=== PATIENT | male | born 1950 | race Caucasian/White ===

== ENCOUNTER 2016-05-01 05:56 | Inpatient (IN) | payer OTHER ==
[2016-04-30 09:52] LABS: % IMMATURE GRANULYOCYTES 0.3 % (0.0-1.1); ABSOLUTE IMMATURE GRANULOCYTES 0.02 10^3/uL (0.00-0.10); ADD DIFF? NO; ADD MORPH? NO; ADD SCAN? NO; ATYPICAL LYMPHOCYTE FLAG 0 (0-99); FRAGMENT RBC FLAG 0 (0-99); HEMOGLOBIN 16.6 g/dL (13.7-17.5); LEFT SHIFT FLG 0 (0-99); LIPEMIA HEMOLYSIS FLAG 90 (0-99); MEAN CELL HEMOGLOBIN 31.6 pg (27.9-34.1); MEAN CELL HEMOGLOBIN CONCENTR. 34.6 g/dL (32.4-36.7); MEAN CELL VOLUME 91.3 fL (81.5-99.8); MEAN PLATELET VOLUME 9.6 fL (8.7-11.7); PLATELET CLUMPS FLAG 0 (0-99); PLATELET COUNT 249 10^3/uL (150-400); RED BLOOD CELL COUNT 5.26 10^6/uL (4.40-6.38); RED CELL DISTRIBUTION WIDTH 12.7 % (11.5-15.2)
[2016-05-01] MEDS ORDERED: LIDOCAINE 1% 5 ML SDV ONE (06:29)
[2016-05-01] MEDS ORDERED: THROMBIN (RECOMBINANT) 5,000 UNIT VIAL TP ONE (06:48)
[2016-05-01] MEDS ORDERED: BUPIVACAINE/EPI 0.5% 30 ML SDV ONE (06:48)
[2016-05-01] MEDS ORDERED: CALCIUM CHLORIDE 1 GM/10 ML INJ ONE (06:48)
[2016-05-01] MEDS ORDERED: POLYMYXIN B SULFATE 500,000 UNIT/10 ML SYR IRR ONE (06:49)
[2016-05-01] MEDS ORDERED: BACITRACIN 50,000 UNITS/10 ML SYR IRR ONE (06:49)
[2016-05-01] MEDS ORDERED: MIDAZOLAM 2 MG/2 ML VIAL ONE (07:10)
[2016-05-01] MEDS ORDERED: fentaNYL 100 MCG/2 ML INJ ONE (07:12)
[2016-05-01] MEDS ORDERED: BUPIVACAINE/EPI 0.25% 30 ML SDV ONE (07:12)
[2016-05-01] MEDS ORDERED: PROPOFOL/EMULSION 500 MG/50 ML BOTTLE IV ONE ×2 (07:12→08:30)
[2016-05-01] MEDS ORDERED: ceFAZolin 1 GM VIAL ONE ×2 (07:40)
[2016-05-01] MEDS ORDERED: ONDANSETRON 4 MG/2 ML VIAL ONE (07:48)
[2016-05-01] MEDS ORDERED: DEXAMETHASONE 4 MG/ML VIAL ONE (07:48)
[2016-05-01] MEDS ORDERED: CHLORHEXIDINE GLUC HIBICLENS 118 ML BTL TP ONE (08:00)
[2016-05-01] MEDS ORDERED: ROPI/epiNEPH/KETOROLAC/morphINE JOINT COCKTAIL IU ONE (08:00)
[2016-05-01] MEDS ORDERED: diphenhydrAMINE 25 MG CAP PO PRN (09:41)
[2016-05-01] MEDS ORDERED: POLYETHYLENE GLYCOL 3350 17 GM PKT PO PRN (09:41)
[2016-05-01] MEDS ORDERED: ONDANSETRON DISINTEGRATING 4 MG TAB PO PRN (09:41)
[2016-05-01] MEDS ORDERED: PROMETHAZINE HCL 25 MG SUPPR PR PRN (09:41)
[2016-05-01] MEDS ORDERED: LACTULOSE 20 GM/30 ML UDCUP PO PRN (09:41)
[2016-05-01] MEDS ORDERED: PHARMACY PAIN CONSULT 1 EA MISC PRN (09:41)
[2016-05-01] MEDS ORDERED: METOCLOPRAMIDE 10 MG/2 ML VIAL IVP PRN (09:41)
[2016-05-01] MEDS ORDERED: TEMAZEPAM 15 MG CAP PO PRN (09:41)
[2016-05-01] MEDS ORDERED: PROMETHAZINE HCL 25 MG/ML INJ IVP PRN (09:41)
[2016-05-01] MEDS ORDERED: oxyCODONE IR 5 MG TAB PO PRN (09:41)
[2016-05-01] MEDS ORDERED: ONDANSETRON 4 MG/2 ML VIAL IVP PRN (09:41)
[2016-05-01] MEDS ORDERED: MAGNESIUM HYDROXIDE 30 ML UDCUP PO PRN (09:41)
[2016-05-01] MEDS ORDERED: BISACODYL 10 MG SUPP PR PRN (09:41)
[2016-05-01] MEDS ORDERED: DIPHENOXYLATE/ATROPINE LOMOTIL 1 TAB PO PRN (09:41)
[2016-05-01] MEDS ORDERED: CYCLOBENZAPRINE 10 MG TAB PO PRN (09:41)
--- NOTE | 2016-05-01 09:41 | POSTOPPROG ---
Post Op Note Date of Operation: 05/01/16 Surgeon: Arely Mohr Ticket Taker: trajustin Anesthesiologist: ida Anesthesia: Epidural Pre-op Diagnosis: r knee oa Procedure: r tkr Inf/Abcess present in the surg proc area at time of surgery?: No Depth: Deep Incisional (Fascial) EBL: 50-100
--- NOTE | 2016-05-01 10:28 | DX ---
Right Knee, Two Views 10:06 a.m. Indication: Recent total knee arthroplasty. Technique: Crosstable lateral and AP views. Comparison: None Findings: A three-piece total knee arthroplasty is anatomically aligned. No perihardware fracture. Ex pected subcutaneous and intra-articular gas. Impression: Good positioning of total knee arthroplasty.
--- NOTE | 2016-05-01 11:11 | GOP ---
[f rep st] OPERATIVE REPORT DATE OF OPERATION: 05/01/2016 SURGEON: Arely Mohr MD SILK WINDING MACHINE OPERATOR: Glen Barrera, ALESIAA, LSA, whose presence was medically necessary. ANESTHESIA: Spinal nerve block, plus adductor nerve block. PREOPERATIVE DIAGNOSIS: Right knee osteoarthritis. POSTOPERATIVE DIAGNOSIS: Right knee osteoarthritis. PROCEDURE PERFORMED: Right total knee arthroplasty. FINDINGS: INDICATIONS: A 65-year-old male with a several-year history of right knee pain worsening with use an d with time to the point it is affecting activities of daily living, along with recreational activiti es. X-ray exam reveals [id number] osteoarthritic changes to the medial compartment. He wishes to have surgery in order to resolve the problem. DESCRIPTION OF PROCEDURE: The patient was brought to the operating room, after the right side had be en identified as the correct side by the patient, nurse, and physician. Once in the operating room, he was given an adductor canal block. He was also given a spinal nerve block with sedation. Once co mpleted, he was placed in a supine position. A tourniquet was placed around the upper portion of the right thigh, with the right lower extremity sterilely prepped and draped in the usual fashion using GSI solution. Once prepped and draped, the limb was exsanguinated, tourniquet inflated to 250 mmHg. Incision was made on the anterior portion of the knee 1 handbreadth above and below the patella, wit h sharp dissection carried down through the skin, subcutaneous layers, with bleeding controlled using electrocautery. Incision was made through the extensor mechanism using a medial parapatellar approa ch, and the patella was brought to the side, but not everted. He was noted to have [id number] oste oarthritic changes to the medial compartment. A drill hole was made just anterior to the intercondyl ar notch with an intramedullary guide placed within the femoral canal. The guide was set to remove 9 mm of bone from the distal end of the femur. Once pinned into place, an oscillating saw was used to remove the distal portion of the femur. Osteotome was used to remove cartilage from the lateral por tion of the posterior femoral condyle with a sizing guide placed on the cut surface of the femur. He was measured to be a size 7, seemed to fit best, based on the anterior cortex. Therefore, drill hol es were made, and a size 7 4-in-1 cutting block was put into place. Anterior, posterior, and chamfer cuts were made. A size 7 trial was put into place, noted to fit securely. The knee was able to ach ieve full extension, suggesting adequate removal of bone. Lug holes were drilled for the femoral com ponent. The ACL along with the medial and lateral meniscus were removed. The knee was brought to ma ximal flexion. The tibia subluxed anteriorly. An external tibial guide was put into place. It was set to remove 2 mm of bone from the medial portion of the tibia. Once pinned into place, a drop raegan was placed in order to ensure proper angle and posterior slope. Locking pin was then placed in the c utting guide. Oscillating saw was used to remove the proximal portion of the tibia. The femoral tri al, tibial trial, and a trial liner was placed into the knee. The knee was able to achieve full exte nsion, suggesting adequate resection of bone. All trials were then removed from the bone. Several t rials were placed on the cut surface of the tibia and noted a size E tibial tray seemed to fit best. It was, therefore, placed in a slight external rotation and was pinned into place. The medullary gu jenna was placed into the tray with the drill passed into the medullary canal and a keel punch then pas sed through the plate. Once completed, the trial plate was removed. Knee brought to full extension. The patella was then everted. The patella was measured to be 25 mm in thickness. Oscillating saw was used to remove the posterior portion of patella, leaving 17 mm of bone. Multiple trials were mike allen on the cut surface and noted a 29 mm patellar button seemed to fit best. Therefore, lug holes we re drilled for a 25 mm component. All cut surfaces of the bone were then thoroughly irrigated with a n antibiotic solution using pulsatile lavage. Once cement had become more firm and doughy, it was pl aced on the proximal portion of the tibia with a size E natural tibia from [employer] put into place, wit h excess cement removed using a [place] elevator. Cement was then placed on the posterior skids of the femoral component, with cement placed on the distal anterior portions of the femur with a size 7 Per ayana cruciate-retaining femoral component from [place] put into place with excess cement removed using a [place] elevator. A trial liner was placed in the tibial tray. The knee was brought to full extens ion in order to pressurize cement. Cement was then placed on the posterior portion of the patella wi th a 29 mm patellar button, clamped into place, and excess cement removed using a [place] elevator. On ce cement had hardened, any excess cement was removed using combination of rongeur and osteotome. Mu ltiple trials were placed in the tibial tray, and noted that a 10 mm liner seemed to fit best. There fore, a 10 mm polyethylene liner was placed in the tibial tray. Once locked into place, the tourniqu et was deflated at 71 minute. Bleeding was controlled using electrocautery. Joint cocktail was then injected around the capsule and along the periosteum. The wound was then closed in layers to includ e 0 Vicryl suture in a zxcprw-lq-rioni type stitch for the extensor mechanism, with plasma gel placed intra-articularly. 0 Vicryl and 2-0 Vicryl suture were used to close the subcutaneous layers, with plasma gel placed external to the extensor mechanism and a 3-0 Prolene suture in a running subcuticul ar stitch used to close the skin. The wound was dressed with Steri-Strips, Xeroform, 4 x 4, and Kerl ix. The leg was completely undraped in the operating room, tourniquet removed from the thigh, and an Alexander wrap placed around the knee. He was then woken up, transferred onto a stretcher, and sent to re covery room in good condition. TOURNIQUET TIME: 71 minutes. /[id number]/MODL
[2016-05-01] MEDS ORDERED: ZOLPIDEM TARTRATE 5 MG TAB PO PRN (11:29)
[2016-05-01] MEDS: KETOROLAC 30 MG/1 ML SDV IVP SCH ×3 (11:39→23:11)
[2016-05-01] MEDS: LR 1,000 ML IV SCH ×2 (11:41→20:02)
[2016-05-01] MEDS: ACETAMINOPHEN 325 MG TAB PO SCH ×3 (11:42→23:11)
[2016-05-01] MEDS: traMADol 50 MG TAB PO SCH ×3 (11:42→23:11)
[2016-05-01] MEDS ORDERED: ceFAZolin 2 GM/DEXTROSE 100 ML IV SCH (14:00)
[2016-05-01] MEDS: ceFAZolin 2 GM in D5W 100 ML IV SCH ×2 (14:27→23:11)
[2016-05-01] MEDS: SENNOSIDES/DOCUSATE SODIUM TAB PO SCH (20:02)
[2016-05-01] MEDS: METOPROLOL TARTRATE 50 MG TAB PO SCH (20:02)
[2016-05-01] MEDS: FAMOTIDINE 20 MG TAB PO SCH (20:02)
[2016-05-01] MEDS ORDERED: ATORVASTATIN CALCIUM 40 MG TAB PO SCH (21:00)
[2016-05-02 05:19] LABS: HEMOGLOBIN 12.6 g/dL (13.7-17.5)
[2016-05-02] MEDS: ACETAMINOPHEN 325 MG TAB PO SCH ×2 (05:58→11:47)
[2016-05-02] MEDS: KETOROLAC 30 MG/1 ML SDV IVP SCH ×2 (05:58→11:48)
[2016-05-02] MEDS: traMADol 50 MG TAB PO SCH ×2 (05:58→11:48)
[2016-05-02 07:26] VITALS: O2SAT 94
[2016-05-02] MEDS: METOPROLOL TARTRATE 50 MG TAB PO SCH (08:43)
[2016-05-02] MEDS: SENNOSIDES/DOCUSATE SODIUM TAB PO SCH (08:45)
[2016-05-02] MEDS: FAMOTIDINE 20 MG TAB PO SCH (08:45)
[2016-05-02] MEDS ORDERED: RIVAROXABAN 10 MG TAB PO SCH (09:00)
[2016-05-02 11:04] VITALS: BP 135/80; PULSE 66; RESP 18; TEMP 97.8
[2016-05-02] MEDS ORDERED: PNEUMOC 13-VAL CONJ-DIP CRM/PF 0.5 ML SYR IM ONE (11:53)
--- NOTE | 2016-05-02 12:36 | PDIAF ---
- Diagnosis Code Status: Full Code - Medication Management Discharge Medications: Medications to Continue on Transfer Zolpidem Tartrate 10 mg PO HS PRN 12/05/12 [Last Taken 12/04/12] Aspirin [Aspirin 325 mg (*)] 325 mg PO HS 04/27/16 [Last Taken Unknown] Atorvastatin Calcium [Lipitor 40 mg (*)] 40 mg PO HS 04/27/16 [Last Taken Unknown] Metoprolol Tartrate [Lopressor 50 mg (*)] 25 mg PO BID 04/27/16 [Last Taken Unknown] Rivaroxaban [Xarelto 10mg (*)] 10 mg PO DAILY #0 tab 05/02/16 [Last Taken Unknown] oxyCODONE IR [Oxycodone Ir (*)] 5 - 10 mg PO Q3HRS PRN #0 tab 05/02/16 [Last Taken Unknown] traMADol [Ultram 50 mg (*)] 50 mg PO Q6HRS #0 tab 05/02/16 [Last Taken Unknown] Discharge Medications: Refer to the Discharge Home Medication list for PRN reason. PICC Care - Routine: N/A - Orders Services needed: Physical Therapy Diet Recommendation: no restrictions on diet Diet Texture: Regular Texture Diet Healy: Not applicable Wound Care Instructions: change dressing as needed, keep dry Sutures/Allan Site: R knee, remove in office Activity/Weight Bearing Restrictions: wbat - Follow Up Care Current Providers and Referrals: Duran Doe MD [Primary Care Provider] -
== END 2016-05-02 14:09 | disposition home or self-care (01) | DRG 470 ==
LOC: F3N 05:56
PROVIDERS: ADMIT Orthopaedic Surgery; ATTEND Orthopaedic Surgery
PROC: 0SRC0J9 Replacement of Right Knee Joint with Synthetic Substitute, Cemented, Open Approach (ICD-10-PCS; principal; 2016-05-01 07:15)
DX: M17.11 Unilateral primary osteoarthritis, right knee (principal); I25.10 Atherosclerotic heart disease of native coronary artery without angina pectoris; E78.00 Pure hypercholesterolemia, unspecified; Z95.5 Presence of coronary angioplasty implant and graft; Z23 Encounter for immunization
CPT/HCPCS: 97110-GP; 97116-GP; 97161-GP; 97165-GO; 97530-GP; C1713; G0009; G8978-GP-CI; G8979-GP-CI; G8980-GP-CI; G8987-GO-CI; G8988-GO-CI; G8989-GO-CI; J0171; J0690; J1100; J1885; J2250; J2405; J2704; J2795; J3010; L1832

== ENCOUNTER 2016-07-29 23:54 | Emergency (ER) | payer OTHER ==
--- NOTE | 2016-07-30 00:11 | CPEKG ---
Heart Rate: 66 RR Interval: 909 P-R Interval: 152 QRSD Interval: 84 QT Interval: 412 QTC Interval: 432 P [place]: 30 QRS [place]: -27 T Wave [place]: 15 EKG Severity - ABNORMAL ECG - EKG Impression: SINUS RHYTHM EKG Impression: INFERIOR INFARCT, AGE INDETERMINATE Electronically Signed By: Phillip Gordillo 30-Jul-2016 07:14:39
--- NOTE | 2016-07-30 00:35 | EDPHY ---
H & P Stated Complaint: dizziness Time Seen by Provider: 07/30/16 00:20 HPI/ROS: Chief Complaint: Dizziness HPI: 65-year-old male had the onset of some lightheadedness and dizziness at 11 :30 a.m. this evening after he had walked up stairs got a bed. Did not have any chest pain or shortness of breath. No nausea or vomiting. No headache. Has a history of coronary artery disease and had a single stent placed in 2012. He is worried that the dizziness might represent something going on with his heart. No fevers or chills or recent illness. No nausea or vomiting. He did have a knee surgery in April and has had chronic right leg swelling since then. Is not tender to the touch. Is not worsening. He has a little bit anxious about a plan manipulation of that knee next week. Currently has no dizziness or other complaints at this time. ROS: 10 point Review of Systems is negative except as noted in the HPI. PMH: Coronary artery disease, hypertension, right knee replacement Social History: No smoking, no alcohol, no recreational drug use Family History: non-contributory Physical Exam: Gen: Awake, Alert, No Distress HEENT: Nose: no rhinorrhea Eyes: PERRLA, EOMI Mouth: Moist mucosa Neck: Supple, no JVD Chest: nontender, lungs clear to auscultation Heart: S1, S2 normal, no murmur Abd: Soft, non-tender, no guarding Back: no CVA tenderness, no midline tenderness Ext: no edema, non-tender Skin: no rash Neuro: CN II-XII intact, Sensation grossly intact, Strength 5/5 in bilateral upper and lower extremities - Personal History Current Tetanus/Diphtheria Vaccine: Yes Tetanus Vaccine Date: 2007 - Medical/Surgical History Hx Asthma: No Hx Chronic Respiratory Disease: No Hx Diabetes: No Hx Cardiac Disease: Yes Hx Renal Disease: No Hx Cirrhosis: No Hx Alcoholism: No Hx HIV/AIDS: No Hx Splenectomy or Spleen Trauma: No Other PMH: HTN, CAD with stent, anxiety, lt knee arthroscopy - Social History Smoking Status: Never smoked Constitutional: Initial Vital Signs Heart Rate 66 07/30/16 00:05 Respiratory Rate 18 07/30/16 00:05 Blood Pressure 128/74 H 07/30/16 00:05 O2 Sat (%) 95 07/30/16 00:05 O2 Delivery Mode Room Air Allergies/Adverse Reactions: No Known Allergies Allergy (Verified 04/27/16 10:23) Home Medications: Medication Instructions Recorded Zolpidem Tartrate 10 mg PO HS PRN 12/05/12 Aspirin [Aspirin 325 mg (*)] 325 mg PO HS 04/27/16 Atorvastatin Calcium [Lipitor 40 40 mg PO HS 04/27/16 mg (*)] Metoprolol Tartrate [Lopressor 50 25 mg PO BID 04/27/16 mg (*)] oxyCODONE IR [Oxycodone Ir (*)] 5 - 10 mg PO Q3HRS PRN #0 tab 05/02/16 traMADol [Ultram 50 mg (*)] 50 mg PO Q6HRS #0 tab 05/02/16 Medical Decision Making - Diagnostics EKG Interpretation: ECG time 12:06 a.m. sinus rhythm with a rate of 66, normal axis, normal intervals, no acute ST or T-wave changes, here Q-waves in leads to 3 in AVF consistent with an old infarct. This ECG is unchanged from 12/06/2012 ED Course/Re-evaluation: Patient is feeling improved with no treatments. Troponin is negative. Electrolytes are entirely normal. Patient has not had any chest pain or shortness of breath. No symptoms suggestive of acute coronary syndrome. With normal ECG interval drawn I am confident that this does not represent ACS. Will discharge with follow with his primary care physician and chemical waste management technician in next 2-3 days, return for worsening. - Data Points Laboratory Results: Laboratory Results 07/30/16 00:17 07/30/16 00:17 07/30/16 07/30/16 00: 00:17 WBC 8.04 10^3/uL 10^3/uL (3.80-9.50) RBC 4.79 10^6/uL 10^6/uL (4.40-6.38) Hgb 14.3 g/dL g/dL (13.7-17.5) Hct 43.0 % % (40.0-51.0) MCV 89.8 fL fL (81.5-99.8) MCH 29.9 pg pg (27.9-34.1) MCHC 33.3 g/dL g/dL (32.4-36.7) RDW 13.1 % % (11.5-15.2) Plt Count 310 10^3/uL 10^3/uL (150-400) MPV 10.0 fL fL (8.7-11.7) Neut % (Auto) 71.1 % % (39.3-74.2) Lymph % (Auto) 17.7 % % (15.0-45.0) [place] % (Auto) 8.6 % % (4.5-13.0) Eos % (Auto) 1.6 % % (0.6-7.6) Baso % (Auto) 0.6 % % (0.3-1.7) Nucleat RBC Rel Count 0.0 % % (0.0-0.2) Absolute Neuts (auto) 5.72 10^3/uL 10^3/uL (1.70-6.50) Absolute Lymphs (auto) 1.42 10^3/uL 10^3/uL (1.00-3.00) Absolute Monos (auto) 0.69 10^3/uL 10^3/uL (0.30-0.80) Absolute Eos (auto) 0.13 10^3/uL 10^3/uL (0.03-0.40) Absolute Basos (auto) 0.05 10^3/uL 10^3/uL (0.02-0.10) Absolute Nucleated RBC 0.00 10^3/uL 10^3/uL (0-0.01) Immature Gran % 0.4 % % (0.0-1.1) Immature Gran # 0.03 10^3/uL 10^3/uL (0.00-0.10) Sodium 137 mEq/L mEq/L (134-144) Potassium 4.1 mEq/L mEq/L (3.5-5.2) Chloride 105 mEq/L mEq/L (97-110) Carbon Dioxide 21 mEq/l L mEq/l (22-31) Anion Gap 11 mEq/L mEq/L (8-16) BUN 24 mg/dL H mg/dL (7-23) Creatinine 0.9 mg/dL mg/dL (0.7-1.3) Estimated GFR > 60 Glucose 177 mg/dL H mg/dL (70-100) Calcium 9.2 mg/dL mg/dL (8.5-10.4) Troponin I < 0.012 ng/mL ng/mL (0-0.034) Departure - Departure Disposition: Home, Routine, Self-Care Clinical Impression: Dizziness, Hypertension Condition: Good Instructions: Dizziness (ED), Lightheadedness (ED), Hypertension (ED) Additional Instructions: Follow up with primary care physician in 2-3 days for re-evaluation. Return emergency department for increasing dizziness, headache, nausea, vomiting , chest pain, shortness of breath, or any other concerns. Referrals: Duran Doe MD [Primary Care Provider] - As per Instructions
[2016-07-30 00:49] LABS: ANION GAP 11 mEq/L (8-16); CALCIUM 9.2 mg/dL (8.5-10.4); CARBON DIOXIDE 21 mEq/l (22-31); CHLORIDE 105 mEq/L (97-110); CREATININE 0.9 mg/dL (0.7-1.3); GLOMERULAR FILTRATION RATE > 60; GLUCOSE 177 mg/dL (70-100); POTASSIUM 4.1 mEq/L (3.5-5.2); SODIUM 137 mEq/L (134-144)
[2016-07-30 00:51] LABS: % IMMATURE GRANULYOCYTES 0.4 % (0.0-1.1); ABSOLUTE IMMATURE GRANULOCYTES 0.03 10^3/uL (0.00-0.10); ADD DIFF? NO; ADD MORPH? NO; ADD SCAN? NO; ATYPICAL LYMPHOCYTE FLAG 0 (0-99); FRAGMENT RBC FLAG 0 (0-99); HEMOGLOBIN 14.3 g/dL (13.7-17.5); LEFT SHIFT FLG 0 (0-99); LIPEMIA HEMOLYSIS FLAG 80 (0-99); MEAN CELL HEMOGLOBIN 29.9 pg (27.9-34.1); MEAN CELL HEMOGLOBIN CONCENTR. 33.3 g/dL (32.4-36.7); MEAN CELL VOLUME 89.8 fL (81.5-99.8); PLATELET CLUMPS FLAG 0 (0-99); PLATELET COUNT 310 10^3/uL (150-400); RED BLOOD CELL COUNT 4.79 10^6/uL (4.40-6.38); RED CELL DISTRIBUTION WIDTH 13.1 % (11.5-15.2)
[2016-07-30 01:01] LABS: TROPONIN I < 0.012 ng/mL (0-0.034)
[2016-07-30 02:56] VITALS: BP 159/96; PULSE 59; RESP 18; O2SAT 95
== END 2016-07-30 02:54 | disposition home or self-care (01) ==
DX: R42 Dizziness and giddiness (principal); I10 Essential (primary) hypertension; I25.10 Atherosclerotic heart disease of native coronary artery without angina pectoris; Z79.82 Long term (current) use of aspirin

== ENCOUNTER 2017-03-26 07:15 | Observation (INO) | payer OTHER ==
--- NOTE | 2017-04-17 17:13 | GHP ---
[f rep st] PREOP HISTORY AND PHYSICAL DATE OF ADMISSION: 04/23/2017 DIAGNOSIS: Left knee osteoarthritis. PLANNED SURGERY: Left total knee arthroplasty. HISTORY OF PRESENT ILLNESS: The patient is a 66-year-old male with a long history of left knee osteo arthritis. After failing a course of conservative treatment including physical therapy, cortisone in jections, oral anti-inflammatories, and activity modification, the patient has continued to have pain to the point where he requires surgery. After reviewing the risks and benefits of the procedure in detail, the patient now opts for surgical intervention. PAST MEDICAL HISTORY: Significant for coronary artery disease and hypertension. PAST SURGICAL HISTORY: Right total knee arthroplasty, manipulation under anesthesia of the right kne e and a cardiac stent in the right coronary artery. MEDICATIONS: Atorvastatin 40 mg daily, metoprolol 50 mg daily, and Ambien 10 mg at night. SOCIAL HISTORY: No tobacco use. Occasional alcohol use. No drug use. ALLERGIES: No known drug allergies. PHYSICAL EXAMINATION: GENERAL: He is alert and oriented x3. NECK: Cervical exam shows full pain-f ree range of motion. No carotid bruits are heard. Patent airway. CARDIAC: Exam shows a regular rat e and rhythm. Normal S1, S2. No murmurs, rubs, or gallops. PULMONARY: Exam shows lungs are clear. ABDOMEN: Exam shows normoactive bowel sounds. Nontender, nondistended. EXTREMITIES: Examination of left knee shows skin to be clean, dry, and intact. Range of motion is full. Stable to varus and debra rupert stress. The ACL is intact. There is no swelling or effusion distally. Calf is soft, nontender. There is no evidence of DVT. IMAGING STUDIES: X-rays of the left knee show moderate to severe osteoarthritis diffusely. ASSESSMENT/PLAN: The patient presents with a long history of left knee osteoarthritis. After failin g a long course of conservative treatment, the patient now opts for surgical intervention. I have re viewed the risks and benefits of surgery in detail today as well as the healing timeframe and the [facility] ient accepts these. /[id number]/MODL
[2017-04-18 11:20] LABS: PLATELET COUNT 221 10^3/uL (150-400)
[2017-04-22] MEDS ORDERED: ROPIVACAINE 0.2% 80 MG, EPINEPHrine 0.2 MG, KETOROLAC TROMETHAMINE 30 MG, morphINE 10 M... IU ONE (20:38)
--- NOTE | 2017-04-22 20:38 | PDHPUP ---
History & Physical Update H&P update statement: This history and physical update is based on an assessment of the patient which was completed after admission or registration (within 24 hours), but prior to the surgery/procedure. H&P update: H&P reviewed & patient examined, no change in patient's condition since H&P completed
[2017-04-23] MEDS ORDERED: ACETAMINOPHEN 500 MG TAB PO ONE ×2 (06:00→08:11)
[2017-04-23] MEDS ORDERED: TRANEXAMIC ACID 3,000 MG in NS 50 ML IRR ONE (06:00)
[2017-04-23] MEDS ORDERED: ceFAZolin 2 GM/SWFI 2 GM/20 ML SYR IVP ONE ×2 (06:00→08:11)
[2017-04-23] MEDS ORDERED: PREGABALIN 150 MG CAP PO ONE (06:00)
[2017-04-23] MEDS ORDERED: ROPIVACAINE 0.2% 80 MG, EPINEPHrine 0.2 MG, KETOROLAC TROMETHAMINE 30 MG, morphINE 10 M... IU ONE (06:00)
[2017-04-23] MEDS ORDERED: THROMBIN (BOVINE) 5,000 UNIT VIAL TP ONE (07:23)
[2017-04-23] MEDS ORDERED: CALCIUM CHLORIDE 1 GM/10 ML INJ ONE (07:23)
[2017-04-23] MEDS ORDERED: BACITRACIN 50,000 UNITS/10 ML SYR IRR ONE (07:23)
[2017-04-23] MEDS ORDERED: POLYMYXIN B SULFATE 500,000 UNIT/10 ML SYR IRR ONE (07:24)
[2017-04-23] MEDS ORDERED: BUPIVACAINE/EPI 0.5% 30 ML SDV ONE (07:24)
[2017-04-23] MEDS ORDERED: LR 1,000 ML IV SCH ×2 (08:11→12:30)
[2017-04-23] MEDS ORDERED: LR 1,000 ML IV ONE (08:12)
[2017-04-23] MEDS ORDERED: LIDOCAINE 1% 2 ML INJ ID PRN (08:12)
[2017-04-23] MEDS ORDERED: PREGABALIN 150 MG CAP ONE (08:40)
[2017-04-23] MEDS ORDERED: MIDAZOLAM 2 MG/2 ML VIAL IVP ONE (09:52)
[2017-04-23] MEDS ORDERED: MIDAZOLAM 2 MG/2 ML VIAL ONE (09:56)
--- NOTE | 2017-04-23 09:56 | PDANEPAE ---
ANE Past Medical History - Cardiovascular History Hx Hypertension: Yes Hx Arrhythmias: No Hx Chest Pain: No Hx Coronary Artery / Peripheral Vascular Disease: Yes Hx CHF / Valvular Disease: No Hx Palpitations: No Cardiovascular History Comment: STENT 11/2012. [place] - Pulmonary History Hx COPD: No Hx Asthma/Reactive Airway Disease: No Hx Recent Upper Respiratory Infection: No Hx Oxygen in Use at Home: No Hx Sleep Apnea: No Sleep Apnea Screening Result - Last Documented: Positive - Neurologic History Hx Cerebrovascular Accident: No Hx Seizures: No Hx Dementia: No - Endocrine History Hx Diabetes: No - Renal History Hx Renal Disorders: No - Liver History Hx Hepatic Disorders: No - Neurological & Psychiatric Hx Hx Neurological and Psychiatric Disorders: Yes Neurological / Psychiatric History Comment: ANXIETY - Cancer History Hx Cancer: No - Congenital Disorder History Hx Congenital Disorders: No - GI History Hx Gastrointestinal Disorders: No - Other Health History Other Health History: INSOMNIA. OSTEOARTHRITIS - Chronic Pain History Chronic Pain: Yes (RT KNEE) - Surgical History Prior Surgeries: right TKA 2017. STENT X 1 IN 11/2012. LEFT KNEE SCOPE 15 YRS AGO ANE Review of Systems Review of Systems: - Exercise capacity METS (RN): 4 METS ANE Patient History - Allergies Allergies/Adverse Reactions: No Known Allergies Allergy (Verified 04/27/16 10:23) - Home Medications Home Medications: Zolpidem Tartrate 10 mg PO HS PRN 12/05/12 [Last Taken 04/21/17] Atorvastatin Calcium [Lipitor 40 mg (*)] 40 mg PO HS 04/27/16 [Last Taken ] Metoprolol Tartrate [Lopressor 50 mg (*)] 25 mg PO BID 04/27/16 [Last Taken 20:30] Aspirin EC [Aspirin EC 81 mg (*)] 81 mg PO DAILY 03/26/17 [Last Taken 04/20/17] - NPO status NPO Since - Liquids (Date): 04/22/17 NPO Since - Liquids (Time): 23:45 NPO Since - Solids (Date): 04/22/17 NPO Since - Solids (Time): 19:00 - Anes Hx Anes Hx: no prior problems - Smoking Hx Smoking Status: Never smoked - Family Anes Hx Family Hx Anesthesia Complications: none ANE Labs/Vital Signs - Labs Result Diagrams: 04/18/17 11:11 - Vital Signs Blood Pressure: 154/89 Heart Rate: 63 Respiratory Rate: 16 O2 Sat (%): 93 Height: 172.72 cm Weight: 90.718 kg ANE Physical Exam - Airway Neck exam: FROM Mallampati Score: Class 2 Mouth exam: normal dental/mouth exam, poor dentition - Pulmonary Pulmonary: no respiratory distress, no rales or rhonchi, clear to auscultation - Cardiovascular Cardiovascular: regular rate and rhythym, no murmur, rub, or gallop, systolic murmur ANE Anesthesia Plan Anesthesia Plan: spinal Regional Anesthesia: adductor canal FNB
[2017-04-23] MEDS ORDERED: fentaNYL 100 MCG/2 ML INJ ONE (10:02)
[2017-04-23] MEDS ORDERED: PROPOFOL/EMULSION 500 MG/50 ML BOTTLE IV ONE (10:02)
[2017-04-23] MEDS ORDERED: ONDANSETRON 4 MG/2 ML VIAL ONE (10:32)
[2017-04-23] MEDS ORDERED: DEXAMETHASONE 4 MG/ML VIAL ONE ×2 (10:34)
[2017-04-23] MEDS ORDERED: LIDOCAINE 2% 5 ML SDV ONE ×2 (11:08)
[2017-04-23] MEDS ORDERED: PROPOFOL 200 MG/20 ML VIAL ONE (11:30)
[2017-04-23] MEDS ORDERED: LR 500 ML IV PRN (11:31)
[2017-04-23] MEDS ORDERED: TRANEXAMIC ACID 3,000 MG/50 ML BAG IRR ONE (11:31)
[2017-04-23] MEDS ORDERED: LABETALOL HCL 5 MG/ML 20 ML MDV IVP PRN (11:31)
[2017-04-23] MEDS ORDERED: OXYCODONE/APAP 5/325 TAB PO PRN (11:31)
[2017-04-23] MEDS ORDERED: NALOXONE HCL 0.4 MG/ML INJ IVP PRN (11:31)
[2017-04-23] MEDS ORDERED: ONDANSETRON 4 MG/2 ML VIAL IVP PRN ×2 (11:31→12:08)
[2017-04-23] MEDS ORDERED: fentaNYL 100 MCG/2 ML INJ IVP PRN (11:31)
[2017-04-23] MEDS ORDERED: PROMETHAZINE HCL 25 MG/ML INJ IVP PRN ×2 (11:31→12:08)
[2017-04-23] MEDS ORDERED: KETOROLAC 30 MG/1 ML SDV ONE (12:02)
[2017-04-23] MEDS ORDERED: POLYETHYLENE GLYCOL 3350 17 GM PKT PO PRN (12:08)
[2017-04-23] MEDS ORDERED: BISACODYL 10 MG SUPP PR PRN (12:08)
[2017-04-23] MEDS ORDERED: ONDANSETRON DISINTEGRATING 4 MG TAB PO PRN (12:08)
[2017-04-23] MEDS ORDERED: diphenhydrAMINE 25 MG CAP PO PRN (12:08)
[2017-04-23] MEDS ORDERED: METOCLOPRAMIDE 10 MG/2 ML VIAL IVP PRN (12:08)
[2017-04-23] MEDS ORDERED: MAGNESIUM HYDROXIDE 30 ML UDCUP PO PRN (12:08)
[2017-04-23] MEDS ORDERED: TEMAZEPAM 15 MG CAP PO PRN (12:08)
[2017-04-23] MEDS ORDERED: CYCLOBENZAPRINE 10 MG TAB PO PRN (12:08)
[2017-04-23] MEDS ORDERED: TAPENTADOL HCL 50 MG TAB PO PRN (12:08)
[2017-04-23] MEDS ORDERED: oxyCODONE IR 5 MG TAB PO PRN (12:08)
[2017-04-23] MEDS ORDERED: DIPHENOXYLATE/ATROPINE LOMOTIL 1 TAB PO PRN (12:08)
[2017-04-23] MEDS ORDERED: PROMETHAZINE HCL 25 MG SUPPR PR PRN (12:08)
[2017-04-23] MEDS ORDERED: LACTULOSE 20 GM/30 ML UDCUP PO PRN (12:08)
--- NOTE | 2017-04-23 12:08 | POSTOPPROG ---
Post Op Note Date of Operation: 04/23/17 Surgeon: Arely Mohr Target Worker: trajustin Anesthesiologist: ida Anesthesia: Epidural Pre-op Diagnosis: l knee oa Procedure: l tkr Inf/Abcess present in the surg proc area at time of surgery?: No Depth: Deep Incisional (Fascial) EBL: 100-500
[2017-04-23] MEDS ORDERED: NON-FORMULARY NEW DRUG (Zolpidem Tartrate [Zolpidem Tartrate] 10 MG) PO PRN (12:10)
[2017-04-23] MEDS ORDERED: ZOLPIDEM TARTRATE 5 MG TAB PO PRN (12:31)
--- NOTE | 2017-04-23 12:40 | POSTANESTH ---
Post Anesthetic Evaluation Cardiovascular Status: Normal, Stable, Similar to Pre-Op Cond Respiratory Status: Normal, Stable, Similar to Pre-op Cond. Level of Consciousness/Mental Status: Can Participate in Eval, Moderately Sleepy Pain Control: Adequate, Prn Tx Ordered Nausea/Vomiting Control: Adequate, Prn Tx Ordered Complications Possibly Related to Anesthesia: None Noted (Adductor canal block done in PACU.)
--- NOTE | 2017-04-23 13:13 | GOP ---
[f rep st] OPERATIVE REPORT DATE OF OPERATION: 04/23/2017 SURGEON: Arely Mohr MD GENERAL ENGINEER: Glen Barrera, CSFA, LSA, whose presence was medically necessary. ANESTHESIA: By epidural. PREOPERATIVE DIAGNOSIS: Left knee osteoarthritis. POSTOPERATIVE DIAGNOSIS: Left knee osteoarthritis. PROCEDURE PERFORMED: Left total knee arthroplasty. FINDINGS: INDICATIONS: This is a 66-year-old male with a long history of left knee pain, worsening with use an d with time, and increasing varus deformity. X-ray exam reveals adhl-my-yupa osteoarthritic changes to the medial compartment. He wishes to have surgery in order to resolve the problem. DESCRIPTION OF PROCEDURE: Patient brought to the operating room after the left side had been identif ied as the correct side by the patient, nurse, physician. Once in the operating room, he was given a n epidural nerve block, placed supine on the operating room table, and a tourniquet placed around the upper portion of the right thigh. Once sterilely prepped and draped, the leg was exsanguinated and the tourniquet inflated to 250 mmHg. A linear incision was made on the anterior portion of the knee 1 handbreadth above and below the pizarro lla, with sharp dissection carried down through the skin and subcutaneous layers, with bleeding contr olled using electrocautery. A medial parapatellar incision was made through the extensor mechanism, with patella brought to the side but not everted. He was noted to have grade IV chondral changes to the medial compartment, grade III chondral changes to the patellofemoral and lateral compartments. T he ACL as well as the medial and lateral menisci and the Hoffa pad were removed from the knee, as wel l as soft tissue removed from the anterior portion of the femur at its very distal extent. A drill hole was made 1 cm anterior to the intercondylar notch with an intramedullary guide placed wi thin the femur. It was set at 5 degrees of valgus and set to remove 10 mm of bone from the distal en d of the femur. The cutting block was pinned into place. Medullary guide was removed. An oscillati ng saw was used to remove distal end of the femur. The distal cut was made. It was noted to have a level cut. The pins were removed. An anterior guide was placed on the cut surface of the femur afte r cartilage had been removed from the posterior condyles. It was noted that a size 7 seemed to fit b est without notching the anterior cortex of the femur. Therefore, drill holes were made, and a 4-in- 1 size 7 cutting block was put into place. Anterior, posterior, and chamfer cuts and a size 7 femora l trial was put in place and noted to fit securely. The leg was able to achieve full extension, sugg esting an adequate amount had been removed. The trial was then removed. Tibia was subluxed anteriorly and the knee brought to full flexion. An external tibial guide was put into place, set in neutral varus-valgus and slight posterior slope. It was pinned into place and se t to remove 4 mm of bone from the proximal end of the tibia. Once pinned into place, a drop raegan was used to ensure proper alignment of the tibia. Once in proper alignment, a locking pin was placed wit hin the cutting tray. Oscillating saw was used to remove proximal portion of the tibia. Once achiev ing a flat cut, trial femur, tibia, and liner were put into place. The knee was able to achieve full extension, suggesting an adequate amount had been removed. Therefore, the trials were removed. The tibia was subluxed anteriorly. When it was fully flexed, multiple trials were placed on the tibia a nd noted a size F seemed to fit best. Therefore, it was set in slight external rotation, pinned into place. A drill was passed through the guide into the intramedullary cavity and a keel punch passed through the guide. Attention was then turned to the patella. With the knee fully extended, the patella was then everted . It was measured to be 26 mm in thickness. The oscillating saw was used to remove the posterior po rtion of the patella, leaving 16 mm of bone. Multiple sizes were trialed on the cut surface of bone, noting a 32 mm button seemed to fit best. Therefore, drill holes were made for a 32 mm button. All cut surfaces of bone were then thoroughly irrigated with antibiotic solution while cement was bertin ng mixed. Once cement was doughy, it was placed on the proximal portion of the tibia with a size F l eft tibial tray, with excess cement removed using a [place] elevator. Cement was then placed on the po sterior skids of the femoral component with cement placed on the distal and anterior portion of the f emoral component, with a size 7 Persona left cruciate-retaining femoral component from Dasia put int o place and excess cement removed using a [place] elevator. A trial liner was placed in the tibial tra y. The knee was brought to full extension in order to pressurize cement. Cement was then placed on the cut surface of the patella with a 32 mm patellar button put into place. Once cement had hardened , any excess cement that was found was removed using a combination of rongeur and osteotome. Multipl e trials were placed in the tibial tray and noted a 12 mm insert seemed to fit best. Therefore, a 12 mm Persona polyethylene component was placed in the tibial tray. Once completed, tourniquet was deflated at 59 minutes. A joint cocktail was injected into the aoc aadc operations staff officer ior portion of the capsule and along the periosteum of the femur and tibia. The knee was then irriga rg with tranexamic acid. The wound was then closed in layers, to include 0 Vicryl suture in a figur e-of-eight type stitch for the extensor mechanism, with plasma gel placed intra-articularly. 0 Vicry l and 2-0 Vicryl suture were used to close the subcutaneous layers with plasma gel placed external to the extensor mechanism, and a 3-0 V-Loc suture in a running subcuticular stitch was used to close th e skin. The wound was dressed with Steri-Strip, Xeroform, 4 x 4, wrapped in Kerlix. The leg was com pletely undraped in the operating room, tourniquet removed from the thigh, and an ALEXANDRA wrap placed brenda und the knee. He was then placed supine. He was transferred onto a stretcher and sent to recovery r o in good condition. TOURNIQUET TIME: 59 minutes. /[id number]/MODL
[2017-04-23] MEDS: KETOROLAC 30 MG/1 ML SDV IVP SCH ×2 (17:19→23:04)
[2017-04-23] MEDS: ACETAMINOPHEN 325 MG TAB PO SCH ×2 (17:19→23:04)
[2017-04-23] MEDS: traMADol 50 MG TAB PO SCH ×2 (17:19→23:04)
[2017-04-23] MEDS: ceFAZolin 2 GM/DEXTROSE 100 ML IV SCH (17:20)
[2017-04-23] MEDS: SENNOSIDES/DOCUSATE SODIUM TAB PO SCH (20:41)
[2017-04-23] MEDS: METOPROLOL TARTRATE 50 MG TAB PO SCH (20:41)
[2017-04-23] MEDS: FAMOTIDINE 20 MG TAB PO SCH (20:42)
[2017-04-23] MEDS ORDERED: ATORVASTATIN CALCIUM 40 MG TAB PO SCH (21:00)
[2017-04-24] MEDS: ceFAZolin 2 GM/DEXTROSE 100 ML IV SCH (02:17)
[2017-04-24] MEDS: traMADol 50 MG TAB PO SCH ×2 (05:36→12:41)
[2017-04-24] MEDS: ACETAMINOPHEN 325 MG TAB PO SCH ×2 (05:37→12:40)
[2017-04-24] MEDS: KETOROLAC 30 MG/1 ML SDV IVP SCH ×2 (05:37→12:39)
[2017-04-24 08:23] VITALS: BP 109/63; PULSE 67; RESP 14; TEMP 97.4; O2SAT 96
[2017-04-24] MEDS: METOPROLOL TARTRATE 50 MG TAB PO SCH (08:46)
[2017-04-24] MEDS: FAMOTIDINE 20 MG TAB PO SCH (08:46)
[2017-04-24] MEDS: SENNOSIDES/DOCUSATE SODIUM TAB PO SCH (08:46)
[2017-04-24] MEDS ORDERED: ENOXAPARIN 40 MG/0.4 ML SYR SC SCH (09:00)
--- NOTE | 2017-04-24 09:58 | ASMTCASEMG ---
Living Arrangements What is your living Answers: With Spouse arrangement? Who do you live with? Type Of Residence What kind of residence do Answers: House you live in? Discharge Plan Comments Coordination Status Comments Notes: Pt is a 66 y/o man admitted for a total knee arthroplasty. Pt will d/c independent with supportive and outpatient PT at [facility]. [facility] will follow up with this pt if any home care srvices should be needed. CM available for changes. Plan: Independent Date Signed: 04/24/2017 09:57 AM Electronically Signed By:MICAELA Dc
--- NOTE | 2017-04-24 10:14 | SOAPPROG ---
TE Progress Note Assessment/Plan: Assessment: Plan: doing well, he can d/c home, with PT he prefers to do Enoxaparin for DVT prophylaxis 04/24/17 10:14 Subjective: Pt is doing very well, he feels ready to go home. Pain is minimal. He is concerned about swelling, since he had problems with blisters with his last surgery. Objective: Vital Signs Temp Pulse Resp BP Pulse Ox 36.3 C 67 14 109/63 96 04/24/17 08:00 04/24/17 08:46 04/24/17 08:00 04/24/17 08:46 04/24/17 08:00 Laboratory Results 04/24/17 05:17 04/23/17 04/24/17 04/25/17 05:59 05:59 05:59 Intake Total 1210 Output Total 100 Balance 1110 wound CDI, calf NT, neg Homman's, ROM 5 to 110, NVI distally - Time Spent With Patient Time Spent With Patient: 15 - Pending Discharge Pending Discharge Within 24 Hours: Yes Pending Discharge Within 48 Hours: No Pending Discharge Date: 04/25/17 Pending Discharge Time: 11:00 ICD10 Worksheet Patient Problems: Problems Problem Status Onset 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
--- NOTE | 2017-04-24 10:18 | PDIAF ---
- Diagnosis Code Status: Full Code - Medication Management Discharge Medications: Medications to Continue on Transfer Zolpidem Tartrate 10 mg PO HS PRN 12/05/12 [Last Taken 04/21/17] Atorvastatin Calcium [Lipitor 40 mg (*)] 40 mg PO HS 04/27/16 [Last Taken ] Metoprolol Tartrate [Lopressor 50 mg (*)] 25 mg PO BID 04/27/16 [Last Taken 20:30] Aspirin EC [Aspirin EC 81 mg (*)] 81 mg PO DAILY 03/26/17 [Last Taken 04/20/17] Acetaminophen [Tylenol 325mg (*)] 650 mg PO Q6HRS tab 04/24/17 [Last Taken Unknown] Enoxaparin [Lovenox 40 MG (*)] 40 mg SC DAILY #10 syr 04/24/17 [Last Taken Unknown] oxyCODONE IR [Oxycodone Ir (*)] 5 - 10 mg PO Q3HRS PRN tab 04/24/17 [Last Taken Unknown] traMADol [Ultram 50 mg (*)] 50 mg PO Q6HRS tab 04/24/17 [Last Taken Unknown] Discharge Medications: Refer to the Discharge Home Medication list for PRN reason. PICC Care - Routine: N/A - Orders Services needed: Physical Therapy Isolation Type: None Diet Recommendation: no restrictions on diet Diet Texture: Regular Texture Diet Healy: Not applicable Daniel Stockings Discontinue Date: d/c after first post-op visit Wound Care Instructions: Change dressing as needed, will need to wrap with saran wrap and tape when he showers. Do not let the wound or dressing get wet. Sutures/Allan Site: left knee Activity/Weight Bearing Restrictions: WBAT, no restrictions - Follow Up Care Current Providers and Referrals: Duran Doe MD [Primary Care Provider] - Arely Mohr MD [Medical Doctor] -
--- NOTE | 2017-04-24 10:33 | ASMTCMCOM ---
CM Note CM Note Notes: Pt is being discharged today. CM met w/ pt amd for dispo planning. Pt reports that he believes that he is able to do it on his own without home care. Pt reports that he will do outpatient PT. CM available for changes. Plan: Independent Date Signed: 04/24/2017 10:32 AM Electronically Signed By:MICAELA Dc
--- NOTE | 2017-04-24 16:48 | ASDISCHSUM ---
Discharge Information Plan Status:Home with No Needs Medically Cleared to Leave: Discharge Date:04/24/2017 01:06 PM CM D/C Disposition:Home, Routine, Self-Care ADT D/C Disposition:Home, Routine, Self-Care Projected Discharge Date:04/24/2017 01:06 PM Transportation at D/C: Discharge Delay Reason: Follow-Up Date:04/24/2017 01:06 PM Discharge Slot: Final Diagnosis: Placement Information Patient Contact Information Contact Name:SONIA Relationship: Address:[address] [place] Work Phone: City:[facility] Phone: [facility]/Zip Code:[place] [address] Email: Financial Information Financial Class: Primary Plan Desc:MEDICARE OUTPATIENT Primary Plan Number:[id number] Secondary Plan Desc:LENNY Secondary Plan Number:[id number] Assessment Information [facility] Initial CM Assessment Living Arrangements What is your living Answers: With Spouse arrangement? Who do you live with? Type Of Residence What kind of residence do Answers: House you live in? Discharge Plan Comments Coordination Status Comments Notes: Pt is a 66 y/o man admitted for a total knee arthroplasty. Pt will d/c independent with supportive and outpatient PT at [facility]. [facility] will follow up with this pt if any home care srvices should be needed. CM available for changes. Plan: Independent Date Signed: 04/24/2017 09:57 AM Electronically Signed By:MICAELA Dc [facility] CM Progress Note CM Note CM Note Notes: Pt is being discharged today. CM met w/ pt amd for dispo planning. Pt reports that he believes that he is able to do it on his own without home care. Pt reports that he will do outpatient PT. CM available for changes. Plan: Independent Date Signed: 04/24/2017 10:32 AM Electronically Signed By:MICAELA Dc Intervention Information Intervention Type:*Incorrect Registration Date of Service:04/23/2017 12:38 PM Patient Type:Inpatient Staff Member:NEHAL Hawkins Courtney Hours: Discipline: Severity: Comment: Intervention Type:*ELLISON-Signed Date of Service:04/24/2017 10:36 AM Patient Type:Observation Staff Member:Tigist Rosenberg Hours: Discipline: Severity: Comment:
== END 2017-04-24 13:06 | disposition home or self-care (01) ==
LOC: INTOOBSV 04-23 08:05 → F3N 04-23 08:05
PROVIDERS: ADMIT Orthopaedic Surgery; ATTEND Orthopaedic Surgery
PROC: 0SRD0JZ Replacement of Left Knee Joint with Synthetic Substitute, Open Approach (ICD-10-PCS; principal; 2017-04-23 09:30)
DX: M17.12 Unilateral primary osteoarthritis, left knee (principal); F41.9 Anxiety disorder, unspecified; G47.00 Insomnia, unspecified; I25.10 Atherosclerotic heart disease of native coronary artery without angina pectoris; I10 Essential (primary) hypertension
CPT/HCPCS: 27447; 73560; 88311; 97110; 97116; 97161; 97165; 97530; C1713; C1776; G8978; G8979; G8987; G8988; G8989; J0171; J0690; J1100; J1650; J1885; J2250; J2405; J2704; J2795; J3010